=== PATIENT | male | born 1935 | race Caucasian/White ===

== ENCOUNTER 2021-11-08 17:26 | Inpatient (IN) | payer OTHER ==
[~2021-11-08] VITALS: Ht 165.1 cm; Wt 65.7 kg
[2021-11-08 17:55] LABS: Basophils # (auto) 0.1 10 ^3/uL (0-0.2); Basophils % (auto) 0.5 % (0.0-2.0); Eosinophils # (auto) 0.1 10 ^3/uL (0-0.8); Eosinophils % (auto) 0.4 % (0.0-7.0); Hematocrit 43.7 % (41.0-53.0); Hemoglobin 14.6 g/dL (13.5-17.5); Lymphocytes # (auto) 1.2 10 ^3/uL (0.4-5.4); Lymphocytes % (auto) 7.8 % (10.0-50.0); Mean Corpuscular Hemoglobin 33.2 pg (28.0-32.0); Mean Corpuscular Hgb Conc. 33.4 g/dL (32.0-36.0); Mean Corpuscular Volume 99.5 fL (80.0-100.0); Monocytes # (auto) 0.8 10 ^3/uL (0-1.3); Monocytes % (auto) 4.9 % (0.0-12.0); Neutrophils # (auto) 13.5 10 ^3/uL (1.6-8.6); Neutrophils % (auto) 86.4 % (37.0-80.0); Nucleated Red Blood Cells % 0.1 %; Red Cell Distribution Width 13.6 % (11.8-14.3); White Blood Cell 15.6 10^3/uL (4.4-10.8)
[2021-11-08 18:06] LABS: INR 1.16 (0.9-1.15); Partial Thromboplastin Time 22.2 sec (23.6-33.0)
[2021-11-08] MEDS ORDERED: DexAMETHasone SOD PHOS 10MG/1ML VIAL INJ IV ONE (18:15)
[2021-11-08] MEDS ORDERED: ALBUTEROL SULF 2.5 MG/0.5ML(0.5%) NEB SOLN NEB ONE (18:15)
[2021-11-08] MEDS ORDERED: IPRATROPIUM BROM 0.5 MG/2.5ML INH SOL NEB ONE (18:15)
[2021-11-08 18:16] LABS: Albumin 2.4 g/dL (3.4-5.0); Calcium 8.1 mg/dL (8.5-10.1); Magnesium 3.3 mg/dL (1.6-2.6)
[2021-11-08 18:22] LABS: BUN/Creatinine Ratio 18.4; Bilirubin, Total 1.2 mg/dL (0.2-1.0); Total Protein 7.4 g/dL (6.4-8.2)
[2021-11-08] MEDS ORDERED: ASPirin 81 mg TAB PO ONE (19:00)
[2021-11-08] MEDS ORDERED: cefTRIAXone 1GM/50ML D5W 50 ML IV ONE (19:15)
[2021-11-08] MEDS ORDERED: IOHEXOL 350 MG/ML 100ML IJ ONE (20:31)
[2021-11-08 20:33] LABS: Magnesium 2.4 mg/dL (1.6-2.6)
[2021-11-08 20:35] LABS: Lactic Acid w/Reflex 2.3 mmol/L (0.4-2.0)
[2021-11-08 20:41] LABS: CRP High Sensitivity 10.3 mg/dL (< 0.3)
[2021-11-08] MEDS ORDERED: ONDANSETRON HCL 4 MG/2 ML VIAL IV PRN (21:30)
[2021-11-08] MEDS ORDERED: HYDROcodone-ACET 5/325MG TAB PO PRN (21:30)
[2021-11-08] MEDS ORDERED: DEXTROSE (50%) 50ML SYRG IV PRN (21:30)
[2021-11-08] MEDS ORDERED: DOCUSATE SOD 100 MG CAP PO PRN (21:30)
[2021-11-08] MEDS ORDERED: ACETAMINOPHEN 325 MG TAB PO PRN (21:30)
[2021-11-08] MEDS ORDERED: HEPARIN SODIUM (PORCINE) 5000 UNITS/ML 1ML VIAL SC SCH (22:00)
[2021-11-08] MEDS ORDERED: MORPHINE SULFATE INJECTION 2 MG/ML SYRG IV PRN (22:30)
[2021-11-08] MEDS ORDERED: NITROGLYCERIN 0.4 MG SL TAB SL PRN (22:30)
[2021-11-08] MEDS: SODIUM CHLOR 0.9% PF (SALINE LOCK) 10ML VIAL/SYR IV SCH (23:17)
[2021-11-08] MEDS ORDERED: HEPARIN SODIUM (PORCINE) 5000 UNITS/ML 1ML VIAL IV ONE (23:30)
[2021-11-08] MEDS: FAMOTIDINE (10MG/ML) 2ML VL IV SCH (23:52)
[2021-11-08] MEDS: InsuLIN REG 1unit/0.01ml Soln (100units/ml) SC SCH (23:53)
[2021-11-08] MEDS: ASCORBIC ACID 500 MG TAB PO SCH (23:53)
[2021-11-08] MEDS: ACCU-CHEK COMFORT CURVE STRIP VI SCH (23:54)
[2021-11-08] MEDS: HEPARIN DRIP/D5W 100UNITS/ML 250 ML IV SCH (23:55)
[2021-11-09] VITALS (7 sets, daily range): BP systolic 119–162; BP diastolic 66–73
[2021-11-09] MEDS: SODIUM CHLOR 0.9% PF (SALINE LOCK) 10ML VIAL/SYR IV SCH ×3 (06:17→21:10)
[2021-11-09] MEDS: ACCU-CHEK COMFORT CURVE STRIP VI SCH ×4 (06:25→21:11)
[2021-11-09] MEDS: InsuLIN REG 1unit/0.01ml Soln (100units/ml) SC SCH ×4 (06:28→22:42)
[2021-11-09 08:20] LABS: Albumin 2.1 g/dL (3.4-5.0); Calcium 8.3 mg/dL (8.5-10.1); Potassium 4.4 mmol/L (3.5-5.1)
[2021-11-09 08:26] LABS: BUN/Creatinine Ratio 26.6; Bilirubin, Total 0.5 mg/dL (0.2-1.0); Total Protein 6.5 g/dL (6.4-8.2)
[2021-11-09 08:28] LABS: Basophils # (auto) 0 10 ^3/uL (0-0.2); Eosinophils # (auto) 0 10 ^3/uL (0-0.8); Hemoglobin 12.8 g/dL (13.5-17.5); Lymphocytes # (auto) 0.6 10 ^3/uL (0.4-5.4); Lymphocytes % (auto) 8.6 % (10.0-50.0); Mean Corpuscular Hemoglobin 32.6 pg (28.0-32.0); Mean Corpuscular Hgb Conc. 33.7 g/dL (32.0-36.0); Mean Corpuscular Volume 96.5 fL (80.0-100.0); Monocytes # (auto) 0.4 10 ^3/uL (0-1.3); Monocytes % (auto) 5.5 % (0.0-12.0); Neutrophils # (auto) 5.8 10 ^3/uL (1.6-8.6); Neutrophils % (auto) 85.9 % (37.0-80.0); Red Blood Cells 3.94 10^6/uL (4.5-5.90); Red Cell Distribution Width 13.3 % (11.8-14.3); White Blood Cell 6.7 10^3/uL (4.4-10.8)
[2021-11-09 08:35] LABS: INR 1.16 (0.9-1.15); Partial Thromboplastin Time 32.1 sec (23.6-33.0)
[2021-11-09] MEDS: FAMOTIDINE (10MG/ML) 2ML VL IV SCH (10:30)
[2021-11-09] MEDS: cefTRIAXone 1GM/50ML D5W 50 ML IV SCH (10:30)
[2021-11-09] MEDS: ZINC SULFATE 220mg CAP or TAB PO SCH (10:30)
[2021-11-09] MEDS: ASCORBIC ACID 500 MG TAB PO SCH ×2 (10:31→21:11)
[2021-11-09] MEDS: MULTIPLE VITAMIN TAB PO SCH (10:31)
[2021-11-09] MEDS: CHOLECALCIFEROL (VITD3) 1,000UNIT=25mCg TAB PO SCH (10:31)
[2021-11-09] MEDS: AZITHROMYCIN 500MG/ 250ML 250 ML IV SCH (11:44)
[2021-11-09 12:19] LABS: INR 1.12 (0.9-1.15); Partial Thromboplastin Time 39.7 sec (23.6-33.0)
[2021-11-09] MEDS: HEPARIN DRIP/D5W 100UNITS/ML 250 ML IV SCH ×2 (18:39→23:27)
[2021-11-09 22:52] LABS: INR 1.06 (0.9-1.15)
[2021-11-10 04:39] VITALS: BP 118/47
[2021-11-10] MEDS: ACCU-CHEK COMFORT CURVE STRIP VI SCH ×4 (06:25→22:06)
[2021-11-10] MEDS: SODIUM CHLOR 0.9% PF (SALINE LOCK) 10ML VIAL/SYR IV SCH ×3 (06:25→22:05)
[2021-11-10] MEDS: InsuLIN REG 1unit/0.01ml Soln (100units/ml) SC SCH ×4 (06:26→22:07)
[2021-11-10 06:57] LABS: Basophils # (auto) 0 10 ^3/uL (0-0.2); Basophils % (auto) 0.1 % (0.0-2.0); Eosinophils # (auto) 0 10 ^3/uL (0-0.8); Eosinophils % (auto) 0.2 % (0.0-7.0); Hematocrit 38.6 % (41.0-53.0); Hemoglobin 13.2 g/dL (13.5-17.5); Lymphocytes # (auto) 0.8 10 ^3/uL (0.4-5.4); Mean Corpuscular Hemoglobin 33.2 pg (28.0-32.0); Mean Corpuscular Hgb Conc. 34.2 g/dL (32.0-36.0); Monocytes # (auto) 0.5 10 ^3/uL (0-1.3); Monocytes % (auto) 4.6 % (0.0-12.0); Neutrophils # (auto) 10.5 10 ^3/uL (1.6-8.6); Neutrophils % (auto) 88.1 % (37.0-80.0); Red Blood Cells 3.98 10^6/uL (4.5-5.90); Red Cell Distribution Width 13.5 % (11.8-14.3); White Blood Cell 11.9 10^3/uL (4.4-10.8)
[2021-11-10 07:14] LABS: Potassium 3.6 mmol/L (3.5-5.1)
[2021-11-10 07:17] LABS: INR 1.16 (0.9-1.15); Partial Thromboplastin Time 57.5 sec (23.6-33.0)
[2021-11-10 07:22] LABS: BUN/Creatinine Ratio 22.9; Calcium 8.2 mg/dL (8.5-10.1)
[2021-11-10 08:00] VITALS: BP 135/65
[2021-11-10] MEDS: cefTRIAXone 1GM/50ML D5W 50 ML IV SCH (10:34)
[2021-11-10] MEDS: AZITHROMYCIN 500MG/ 250ML 250 ML IV SCH (10:35)
[2021-11-10] MEDS: ASCORBIC ACID 500 MG TAB PO SCH ×2 (10:35→22:06)
[2021-11-10] MEDS: FAMOTIDINE (10MG/ML) 2ML VL IV SCH (10:35)
[2021-11-10] MEDS: MULTIPLE VITAMIN TAB PO SCH (10:35)
[2021-11-10] MEDS: ZINC SULFATE 220mg CAP or TAB PO SCH (10:35)
[2021-11-10] MEDS: CHOLECALCIFEROL (VITD3) 1,000UNIT=25mCg TAB PO SCH (10:36)
[2021-11-10 12:00] VITALS: BP 158/82
[2021-11-10] MEDS ORDERED: LORazepam 2MG/ML-1ML VIAL ONE (12:01)
[2021-11-10] MEDS ORDERED: HALOPERIDOL 1 MG TAB PO ONE (14:45)
[2021-11-10 16:00] VITALS: BP 153/89
[2021-11-10] MEDS ORDERED: APIXABAN 5 MG TAB PO SCH (22:00)
[2021-11-10] MEDS: APIXABAN 5 MG TAB PO SCH (22:06)
[2021-11-10] MEDS: HALOPERIDOL 1 MG TAB PO SCH (22:06)
[2021-11-10] MEDS: LORazepam 2MG/ML-1ML VIAL IV PRN (22:48)
[2021-11-11] MEDS: SODIUM CHLOR 0.9% PF (SALINE LOCK) 10ML VIAL/SYR IV SCH ×3 (05:55→21:06)
[2021-11-11] MEDS: ACCU-CHEK COMFORT CURVE STRIP VI SCH ×4 (05:55→21:46)
[2021-11-11] MEDS: InsuLIN REG 1unit/0.01ml Soln (100units/ml) SC SCH ×4 (06:00→21:45)
[2021-11-11] MEDS: HALOPERIDOL 1 MG TAB PO SCH ×3 (06:00→21:07)
[2021-11-11 07:25] VITALS: BP 130/79
[2021-11-11] MEDS: LORazepam 2MG/ML-1ML VIAL IV PRN ×2 (09:09→13:37)
[2021-11-11] MEDS: FAMOTIDINE (10MG/ML) 2ML VL IV SCH (09:13)
[2021-11-11] MEDS: cefTRIAXone 1GM/50ML D5W 50 ML IV SCH (09:13)
[2021-11-11] MEDS: MULTIPLE VITAMIN TAB PO SCH (09:14)
[2021-11-11] MEDS: AZITHROMYCIN 500MG/ 250ML 250 ML IV SCH (09:14)
[2021-11-11] MEDS: APIXABAN 5 MG TAB PO SCH ×2 (09:14→21:06)
[2021-11-11] MEDS: ASCORBIC ACID 500 MG TAB PO SCH ×2 (09:14→21:07)
[2021-11-11] MEDS: ZINC SULFATE 220mg CAP or TAB PO SCH (09:14)
[2021-11-11] MEDS: CHOLECALCIFEROL (VITD3) 1,000UNIT=25mCg TAB PO SCH (09:15)
[2021-11-11 11:57] VITALS: BP 139/78
[2021-11-11 16:34] VITALS: BP 125/64
[2021-11-11 21:30] VITALS: BP 172/90
[2021-11-11 23:08] VITALS: BP 129/78
[2021-11-12] VITALS (7 sets, daily range): BP systolic 114–192; BP diastolic 69–86
[2021-11-12] MEDS: SODIUM CHLOR 0.9% PF (SALINE LOCK) 10ML VIAL/SYR IV SCH ×3 (05:36→22:00)
[2021-11-12] MEDS: HALOPERIDOL 1 MG TAB PO SCH ×3 (06:00→22:03)
[2021-11-12] MEDS: ACCU-CHEK COMFORT CURVE STRIP VI SCH ×4 (06:44→22:36)
[2021-11-12] MEDS: InsuLIN REG 1unit/0.01ml Soln (100units/ml) SC SCH ×4 (06:44→22:00)
[2021-11-12] MEDS: AZITHROMYCIN 500MG/ 250ML 250 ML IV SCH (10:41)
[2021-11-12] MEDS: MULTIPLE VITAMIN TAB PO SCH (10:41)
[2021-11-12] MEDS: APIXABAN 5 MG TAB PO SCH ×2 (10:41→22:00)
[2021-11-12] MEDS: cefTRIAXone 1GM/50ML D5W 50 ML IV SCH (10:41)
[2021-11-12] MEDS: ZINC SULFATE 220mg CAP or TAB PO SCH (10:41)
[2021-11-12] MEDS: ASCORBIC ACID 500 MG TAB PO SCH ×2 (10:42→22:03)
[2021-11-12] MEDS: CHOLECALCIFEROL (VITD3) 1,000UNIT=25mCg TAB PO SCH (10:42)
[2021-11-13] MEDS: LORazepam 2MG/ML-1ML VIAL IV PRN (01:32)
[2021-11-13] MEDS ORDERED: LORazepam 2MG/ML-1ML VIAL IV PRN ×2 (02:30→07:00)
[2021-11-13 05:00] VITALS: BP 147/86
[2021-11-13] MEDS: HALOPERIDOL 1 MG TAB PO SCH (06:25)
[2021-11-13] MEDS: SODIUM CHLOR 0.9% PF (SALINE LOCK) 10ML VIAL/SYR IV SCH (06:26)
[2021-11-13] MEDS ORDERED: MORPHINE SULFATE INJECTION 2 MG/ML SYRG IV PRN (07:00)
[2021-11-13] MEDS: InsuLIN REG 1unit/0.01ml Soln (100units/ml) SC SCH (07:22)
[2021-11-13] MEDS: ACCU-CHEK COMFORT CURVE STRIP VI SCH (07:23)
[2021-11-13 10:42] VITALS: BP 122/78
[2021-11-17] MEDS ORDERED: APIXABAN 5 MG TAB PO SCH (22:00)
== END 2021-11-13 17:50 | DRG 871 ==
LOC: EDBD 17:26 → ER 17:26 → TELE 22:22 → TELE-WESTW 11-09 00:26
PROVIDERS: ADMIT Nurse Practitioner Family; ATTEND Internal Medicine Geriatric Medicine
PROC: 5A09357 Assistance with Respiratory Ventilation, Less than 24 Consecutive Hours, Continuous Positive Airway Pressure (ICD-10-PCS; principal; 2021-11-08)
DX: A41.89 Other specified sepsis (principal); U07.1 COVID-19; J96.21 Acute and chronic respiratory failure with hypoxia; I26.94 Multiple subsegmental thrombotic pulmonary emboli without acute cor pulmonale; J12.82 Pneumonia due to coronavirus disease 2019; I21.4 Non-ST elevation (NSTEMI) myocardial infarction; E11.65 Type 2 diabetes mellitus with hyperglycemia; Z66 Do not resuscitate; G30.9 Alzheimer's disease, unspecified; I27.20 Pulmonary hypertension, unspecified; F02.80 Dementia in other diseases classified elsewhere, unspecified severity, without behavioral disturbance, psychotic disturbance, mood disturbance, and anxiety; I10 Essential (primary) hypertension; Z79.4 Long term (current) use of insulin; Z86.73 Personal history of transient ischemic attack (TIA), and cerebral infarction without residual deficits
CPT/HCPCS: 36415; 36600; 71045; 71275; 80048; 80053; 80320; 82805; 82962; 83036; 83605; 83735; 83880; 84484; 85025; 85379; 85610; 85730; 86141; 87426; 93005; 93306; 93970; 94640; 94660; 96365; 96372; 96375; 99291; G0378; J0696; J1100; J1815; J3490